=== PATIENT | male | born 1995 | race Two or more races ===

== ENCOUNTER 2025-03-22 23:57 | Emergency (ER) | payer MEDICAID, OTHER ==
[~2025-03-22] VITALS: Ht 170.2 cm; Wt 80.3 kg
[2025-03-23 00:30] VITALS: PULSE 82; RESP 12; TEMP 98.4; O2SAT 97
--- NOTE | 2025-03-23 00:31 | ED.PDOC ---
Back pain HPI HPI Comments 29-year-old male with a history of prediabetes and multiple prior right shoulder dislocations and now status post right shoulder surgery brought in by cousin for evaluation of right shoulder pain and deformity status post mechanical fall about an hour ago. Patient states he tripped, fell, landed on his arm while it was flexed at the elbow, then felt immediate pain in his right shoulder similar to previous dislocations. He denies any numbness or weakness. There is limited range of motion at the right shoulder joint. He denies any other injuries. He states this is the 1st time he has had a dislocation since the corrective surgery. Time Seen by MD: 00:14 Allergies: Coded Allergies: NO KNOWN ALLERGIES (Unverified , 03/23/25) Home Meds Active Scripts Hydrocodone-Acetaminophen (Hydrocodone Bitartrate/AC 5-325 mg) 1 Tab Tab, 1 TAB PO Q6HP PRN, #20 TAB prn breakthrough pain Prov:YONY CULLEN MD 03/23/25 Ibuprofen Micronized (Ibuprofen) 800 Mg Tab, 800 MG PO Q8HP PRN, #30 TAB prn pain, take with food Prov:YONY CULLEN MD 03/23/25 Past Medical History Past Medical History (Other): Prediabetes, multiple prior right shoulder dislocations Surgical History (Other): Right shoulder surgery for multiple dislocations Family History Family History: Reviewed,noncontributory to illness Social History Smoker: Non-Smoker Alcohol: Occasionally Drugs: Denies Drug Use Lives In: Home All Other Systems: Reviewed and Negative (Comprehensive systems review obtained and negative except for what is stated in the HPI.) Physical Exam General Appearance: No Apparent Distress HEENT: Other (Pupils and face symmetric. Moist mucous membranes.) Neck: Full Range of Motion, Non-Tender, Normal Inspection, Supple Respiratory: Lungs Clear, No Accessory Muscle Use, No Respiratory Distress, Normal Breath Sounds Cardiovascular: No Edema, No JVD, Regular Rate/Rhythm Breast Exam: Deferred Gastrointestinal: Non Tender, Soft Genitalia: Deferred Pelvic: Deferred Rectal: Deferred Extremities: Other (Right shoulder diffuse tenderness with obvious glenohumeral joint deformity and limited range of motion. Right upper extremity neurovascularly intact.) Neurologic: Alert (Oriented x4), Normal Affect, Normal Mood, Other (Ambulatory) Cerebellar Function: NOT DONE Reflexes: NOT DONE Skin: Dry, Normal Color, Warm Peripheral Pulses: 2+ Radial (R), 2+ Radial (L) Lymphatic: NOT DONE Was a procedure done? Was a procedure done?: Yes Sedation Sedation?: No Informed consent obtained: Yes Sedation start time: : Sedation end time: : Reduction Indication: Dislocation Sedation: Consents obtained, Sedation as ordered Intra-articular anesthetic ary: No Post-reduction x-ray show: Reduction, Good Alignment Informed consent obtained: Yes Risks/benefits/alt described: Yes Notes Closed reduction of right glenohumeral joint dislocation was achieved using inferior traction and external rotation on the right upper extremity. Patient tolerated the procedure well. A right shoulder immobilizer was applied after the joint was reduced. The right upper extremity was neurovascularly intact after reduction. Postreduction right shoulder x-ray showed no acute fracture and adequate alignment of the glenohumeral joint. Back Pain Differential Dx Differential Diagnosis: Fracture, Musculoskeletal Pain, Other (Dislocation, soft tissue injury, among others) X-Ray, Labs, Meds, VS Vital Signs Date Time Temp Pulse Resp B/P (MAP) Pulse Ox O2 Delivery O2 Flow Rate FiO2 03/23/25 02:00 86 16 109/71 (84) 94 03/23/25 01:01 90 15 98 2.0 28 99 17 100 102 98 03/23/25 00:30 82 12 97 Room Air* 0 21 03/23/25 00:30 98.4 82 12 118/66 (83) 97 98.4 03/23/25 00:22 98.3 85 18 130/76 (94) 100 98.3 Current Medications Medications (Trade) Dose Ordered Sig/Agata Route Start Time Stop Time Status Last Admin Ondansetron HCl (Zofran) 4 mg ONCE ONCE IV 03/23/25 00:30 03/23/25 00:31 DC 03/23/25 00:39 Ketorolac Tromethamine (Toradol Injection) 30 mg ONCE ONCE IV 03/23/25 00:30 03/23/25 00:31 DC 03/23/25 00:39 Ketamine HCl (Ketalar) 80 mg ONCE ONCE IV 03/23/25 00:45 03/23/25 00:47 DC 03/23/25 01:01 PROCEDURE(s): RSHD2 - R SHOULDER 2+ VIEW XRAY REASON: disloc ORDER NUMBER(s): [id number], ACCESSION NUMBER(s): [id number] EXAMINATIONS: 2 views of the right shoulder CLINICAL HISTORY: disloc COMPARISON: None Findings and impression: Anterior and inferior dislocation of the humerus relative to the glenoid. No grossly displaced fractures are evident on the provided views. EDURE(s): RSHD2 - R SHOULDER 2+ VIEW XRAY REASON: post reduction ORDER NUMBER(s): [id number], ACCESSION NUMBER(s): [id number] CLINICAL INDICATION: post reduction TECHNIQUE: XY R SHOULDER 2+ VIEW XRAY Comparison: XY R SHOULDER 2+ VIEW XRAY on DOS: 03/23/25 FINDINGS / IMPRESSION: Interval reduction of previously seen anterior shoulder dislocation. No evidence of fracture. X-Ray, Labs, Meds, VS Comment 29-year-old male with a history of prediabetes and multiple prior right shoulder dislocations status post right shoulder surgery presenting after a mechanical fall with a right glenohumeral joint dislocation Vitals unremarkable Exam remarkable for right shoulder deformity, tenderness and limited range of motion Rhythm strip independently interpreted by me: Sinus rhythm, rate 85, no ectopy Right shoulder x-rays: Findings and impression: Anterior and inferior dislocation of the humerus relative to the glenoid. No grossly displaced fractures are evident on the provided views. Postreduction right shoulder x-rays: FINDINGS / IMPRESSION: Interval reduction of previously seen anterior shoulder dislocation. No evidence of fracture. ER course Informed consent was obtained for right glenohumeral joint reduction under c onscious sedation Patient was medicated with Toradol 30 mg IV, Zofran 4 mg IV, then ketamine 80 mg IV The right glenohumeral joint was reduced using inferior traction and external rotation. Please see procedure note for details. A right shoulder immobilizer was applied. The right upper extremity was neurovascularly intact after the procedure and shoulder immobilizer application. On re-evaluation, patient is comfortable with stable vitals. He appears stable for discharge with close outpatient follow-up with his orthopedist. Off work for the next 2 weeks so patient may follow-up with orthopedist. May return sooner as determined by orthopedist. Rx [place], ibuprofen Time of 1ST Reevaluation: 02:02 Reevaluation 1ST: Improved Patient Education/Counseling: Diagnosis, Treatment, Need For Follow Up Family Education/Counseling: Diagnosis, Treatment, Need For Follow Up Departure 1 Departure Time of Disposition: 02:20 Impression: Primary Impression: Dislocation of right glenohumeral joint Disposition: 01 HOME / SELF CARE / HOMELESS Condition: Stable Additional Instructions: Follow-up with your orthopedist as soon as possible. Keep the shoulder i mmobilizer splint on until further evaluation by your orthopedist. I have prescribed pain medication. [place] [phone] Ph: [phone] DIAGNOSTIC IMAGING Diagnostic Imaging Report : [id number] Signed PATIENT: GAYLA DUTTON ACCT: [id number] UNIT: [id number] : 1995 LOC: ER ROOM / BED: / AGE / SEX: 29 / M ADM STATUS: REG ER SERVICE ORDERING PHYSICIAN: YONY CULLEN MD PROCEDURE(s): RSHD2 - R SHOULDER 2+ VIEW XRAY REASON: disloc ORDER NUMBER(s): [id number], ACCESSION NUMBER(s): [id number] EXAMINATIONS: 2 views of the right shoulder CLINICAL HISTORY: disloc COMPARISON: None Findings and impression: Anterior and inferior dislocation of the humerus relative to the glenoid. No grossly displaced fractures are evident on the provided views. ATED BY: ONEAL FLORES MD DICTATED DATE/TIME: 03/23/[address] [address] Ph: [phone] DIAGNOSTIC IMAGING Diagnostic Imaging Report : [id number] Signed PATIENT: GAYLA DUTTON ACCT: [id number] UNIT: [id number] : 1995 LOC: ER ROOM / BED: / AGE / SEX: 29 / M ADM STATUS: REG ER SERVICE 5 ORDERING PHYSICIAN: YONY CULLEN MD PROCEDURE(s): RSHD2 - R SHOULDER 2+ VIEW XRAY REASON: post reduction ORDER NUMBER(s): [id number], ACCESSION NUMBER(s): [id number] CLINICAL INDICATION: post reduction TECHNIQUE: XY R SHOULDER 2+ VIEW XRAY Comparison: XY R SHOULDER 2+ VIEW XRAY on DOS: 03/23/25 FINDINGS / IMPRESSION: Interval reduction of previously seen anterior shoulder dislocation. No evidence of fracture. ATED BY: FOREIGN MCCRACKEN MD DICTATED DATE/TIME: 03/23/25 0132 e-Prescriptions Hydrocodone-Acetaminophen (Hydrocodone Bitartrate/AC 5-325 mg) 1 Tab Tab 1 TAB PO Q6HP PRN, #20 TAB prn breakthrough pain Prov: YONY CULLEN MD 03/23/25 Ibuprofen Micronized (Ibuprofen) 800 Mg Tab 800 MG PO Q8HP PRN, #30 TAB prn pain, take with food Prov: YONY CULLEN MD 03/23/25 Discharged With: Relative, Friend Critical Care Note Critical Care Time?: No Stability Stability form required: No Heart Score Heart Score: Heart Score Response (Comments) Value History N/A 0 EKG N/A 0 Age N/A 0 Risk Factors N/A 0 Troponin N/A 0 Total 0 YONY CULLEN MD March 23, 2025 00:31
[2025-03-23] MEDS: KETOROLAC TROMETH 30 MG/ML 1ML VIAL IV ONE (00:39)
[2025-03-23] MEDS: ONDANSETRON HCL 4 MG/2 ML VIAL IV ONE (00:39)
--- NOTE | 2025-03-23 00:59 | DVH ---
EXAMINATIONS: 2 views of the right shoulder CLINICAL HISTORY: disloc COMPARISON: None Findings and impression: Anterior and inferior dislocation of the humerus relative to the glenoid. No grossly displaced fractures are evident on the provided views.
[2025-03-23] MEDS: KETAMINE 50mg/ML 10ml Vial (500mg/10ml) IV ONE (01:01)
--- NOTE | 2025-03-23 01:34 | DVH ---
CLINICAL INDICATION: post reduction TECHNIQUE: XY R SHOULDER 2+ VIEW XRAY Comparison: XY R SHOULDER 2+ VIEW XRAY on DOS: 03/23/25 FINDINGS / IMPRESSION: Interval reduction of previously seen anterior shoulder dislocation. No evidence of fracture.
[2025-03-23 02:00] VITALS: BP 109/71; PULSE 86; RESP 16; O2SAT 94
[2025-03-23] MEDS ORDERED: HYDR-4902 PO (02:16)
[2025-03-23] MEDS ORDERED: IBUP-1455 PO (02:16)
== END 2025-03-23 02:33 | disposition home or self-care (01) ==
LOC: ER 23:57
DX: S43.014A Anterior dislocation of right humerus, initial encounter (principal); W01.0XXA Fall on same level from slipping, tripping and stumbling without subsequent striking against object, initial encounter; Y93.89 Activity, other specified; Y92.89 Other specified places as the place of occurrence of the external cause; Y99.8 Other external cause status
CPT/HCPCS: 23650; 73030; 96374; 96375; 99285; J1885; J2405